=== PATIENT | female | born 1965 | race Caucasian/White ===

== ENCOUNTER 2022-09-19 13:28 | Emergency (ER) | payer BC, MEDICAID ==
[~2022-09-19] VITALS: Ht 160 cm; Wt 118.8 kg
[~2022-09-19 13:28] MED LIST: CYCL-524 PO
[2022-09-19 13:34] VITALS: BP 139/89
[2022-09-19] MEDS ORDERED: NAPR-56 PO (15:39)
[2022-09-19] MEDS ORDERED: ketorolac trometh inj. 60 MG/2 ML VIAL IM ONE (15:40)
== END 2022-09-19 16:02 | disposition home or self-care (01) ==
LOC: ER 13:28
DX: M25.511 Pain in right shoulder (principal); Z79.899 Other long term (current) drug therapy
CPT/HCPCS: 73030; 96372; 99283; J1885